=== PATIENT | male | born 1975 | race Caucasian/White ===

== ENCOUNTER 2018-04-06 10:58 | Inpatient (IN) | payer OTHER ==
[~2018-04-06] VITALS: Ht 180.3 cm; Wt 97.5 kg
[2018-04-06 14:46] LABS: *AMPHETAMINE, URINE NEGATIVE (NEGATIVE); *BARBITURATE, URINE NEGATIVE (NEGATIVE); *CANNABINOID, URINE NEGATIVE (NEGATIVE); *COCCAINE, URINE NEGATIVE (NEGATIVE); *OPIATE, URINE NEGATIVE (NEGATIVE); *PHENCYCLIDINE SCREEN,URINE NEGATIVE (NEGATIVE)
--- NOTE | 2018-04-06 14:55 | NUR ---
PRE-ADMISSION NOTE PT IS A 42 Y/O M, RECEIVED AT INTAKE, PT IS A/OX4, RESPIRATIONS EVEN AND UNLABORED. INITIAL VS, BP: 163/95, HR: 71, RR: 18, O2SAT: 97%. PT IS FLUSHED, APPEARS ANXIOUS, PRESSURED SPEECH, HAS A NERVOUS LAUGHTER, FIDGETY. PT REPORTS NKA, PMH OF ANXIETY AND DEPRESSION. NO HX OF SZ. HX OF SI AT AGE 21; PT CUT HIS WRISTS IN AN ATTEMPT TO COMMIT SUICIDE. DENIES SI AT THIS TIME. DENIES SMOKING. SUBSTANCE USE HX: 1. ETOH- VODKA 1 PINT DAILY FOR 11 MONTHS, WAS DRINKING VODKA 750 ML DAILY FOR 3-4 YEARS. BEFORE THEN, PT STATES HE WAS DRINKING OCCASIONAL BEERS. LAST USE WAS YESTERDAY 04/05/18 @220- 1 TALL CAN OF BEER. 2. BENZO- KLONOPIN 2 MG BID DAILY FOR 5-6 MONTHS. BEFORE HE WAS USING 1 MG X 3 MONTHS. BEFORE, HE WAS USING 0.5 MG FOR 3 MONTHS. LAST USE IS TODAY 04/06/18 0800.
--- NOTE | 2018-04-06 16:00 | NUR ---
CIWA ASSESSMENT CIWA 15 @1600. PT IS FLUSHED, HAS DARK CIRCLES UNDER HIS EYES, APPEARS ANXIOUS, HAS A PRESSURED SPEECH. PT PRESENTS HIGH ANXIETY, AGITATION, RESTLESS MOVEMENTS, CLAMMY SKIN, DIAPHORESIS, DIFFICULTY CONCENTRATING, TREMORS, PINS AND NEEDLES SENSATION.
[2018-04-06 16:30] VITALS: BP 155/102
[2018-04-06] MEDS ORDERED: LORAZEPAM 2 MG/1 ML VIAL IM PRN (17:00)
[2018-04-06] MEDS ORDERED: MIRALAX 17 GM POWD.PACK PO PRN (17:00)
[2018-04-06] MEDS ORDERED: IBUPROFEN 600 MG TABLET PO PRN (17:00)
[2018-04-06] MEDS ORDERED: ONDANSETRON 4 MG/2 ML VIAL IM PRN (17:00)
[2018-04-06] MEDS ORDERED: LOPERAMIDE HCL 2 MG CAPSULE PO PRN ×2 (17:00)
[2018-04-06] MEDS ORDERED: LORAZEPAM 1 MG TABLET PO PRN ×2 (17:00)
[2018-04-06] MEDS ORDERED: MAG HYDROX/AL HYDROX/SIMETH 30 ML LIQUID UDC PO PRN (17:00)
[2018-04-06] MEDS ORDERED: MAGNESIUM HYDROXIDE 30 ML LIQUID UDC PO PRN (17:00)
[2018-04-06] MEDS ORDERED: ACETAMINOPHEN 325 MG TABLET PO PRN (17:00)
[2018-04-06] MEDS ORDERED: THIAMINE HCL 200 MG/2 ML VIAL IM ONE (17:00)
[2018-04-06] MEDS: PHENOBARBITAL 60 MG TABLET PO SCH ×2 (17:23→21:04)
[2018-04-06 18:15] LABS: BASOPHILS # (AUTO) 0.1 K/uL (0.0-8.0); EOSINOPHILS # (AUTO) 0.3 K/uL (0.0-0.7); EOSINOPHILS % (AUTO) 4.9 % (0.0-7.0); HEMATOCRIT 48.3 % (36.7-47.1); HEMOGLOBIN 16.4 g/dL (12.5-16.3); LYMPHOCYTES % (AUTO) 30.6 % (20.5-51.5); MEAN CORPUSCULAR HEMOGLOBIN 32.4 uug (23.8-33.4); MEAN CORPUSCULAR HGB CONC 34 g/dL (32.5-36.3); MEAN CORPUSCULAR VOLUME 95.7 fL (73.0-96.2); MONOCYTES # (AUTO) 0.4 K/uL (2.0-10.0); MONOCYTES % (AUTO) 6.4 % (0.0-11.0); NEUTROPHILS # (AUTO) 3.8 K/uL (1.8-8.9); NEUTROPHILS % (AUTO) 57.1 % (38.5-71.5); PLATELET COUNT (AUTO) 305 K/uL (152-348); RED BLOOD CELL COUNT(AUTO) 5.05 MIL/uL (4.06-5.63); WHITE BLOOD COUNT (AUTO) 6.7 K/uL (3.6-10.2)
[2018-04-06 18:31] LABS: ALANINE AMINOTRANSFERASE 110 U/L (16-63); ALKALINE PHOSPHATASE 67 U/L (50-136); ASPARTATE AMINOTRANSFERASE 49 U/L (15-37); BILIRUBIN,TOTAL 0.5 mg/dL (0.2-1.0); CARBON DIOXIDE 24 mmol/L (21-32); CHLORIDE 104 mmol/L (98-107); CREATININE 1.4 mg/dL (0.6-1.3); GLUCOSE 124 mg/dL (74-106); MAGNESIUM 2.2 mg/dL (1.8-2.4); POTASSIUM 3.8 mmol/L (3.5-5.1); TOTAL PROTEIN, SERUM 8.4 g/dL (6.4-8.2); UREA NITROGEN, BLOOD 14 mg/dL (7-18)
[2018-04-06 18:33] LABS: ETHANOL < 3 MG/DL (0-0)
--- NOTE | 2018-04-06 18:52 | NUR ---
ADMISSION NOTE PT IS A 42 Y/O M ADMITTED ON 04/06/18 AT 1520 FOR MEDICALLY SUPERVISED ETOH-VODKA AND BENZO- KLONOPIN WITHDRAWAL. PT IS A/OX4, RESPIRATIONS EVEN AND UNLABORED. INITIAL VS, BP: 163/95, HR: 71, RR: 18, O2SAT: 97%. PT IS 5'11 AND 215 LBS. PT IS SELF AMBULATORY, AND IS THE PRIMARY SOURCE OF INFO. PT IS FLUSHED, HAS DARK CIRCLES UNDER HIS EYES, APPEARS ANXIOUS, HAS A PRESSURED SPEECH AND A NERVOUS LAUGHTER. PT STATES HE IS BEGINNING TO FEEL S/S OF WITHDRAWAL, C/O ANXIETY, AGITATION, RESTLESS MOVEMENTS, CLAMMY SKIN, DIAPHORESIS, DIFFICULTY CONCENTRATING, TREMORS, PINS AND NEEDLES SENSATION. PT HAS GOOD SKIN TURGOR, CAP REFILL WNL, LUNGS ARE BILATERALLY CLEAR. BOWEL SOUNDS ACTIVE X4 QUAD AND ABD SOFT IS NON-TENDER. PT REPORTS NKA, PMH OF ANXIETY AND DEPRESSION. NO HX OF SZ. HX OF SI WITH ATTEMPT AT AGE 21; PT CUT HIS WRISTS IN AN ATTEMPT TO COMMIT SUICIDE. DENIES SI AT THIS TIME. DENIES HAVING A PCP. PSYCH MD IS DR. GIBSON. PT HAS A HX OF SMOKING BUT REPORTS NOT AT THIS TIME, HAS NOT SMOKED FOR 10 YEARS. PT REPORTS HAVING A FAMILY HX OF ETOH ABUSE- MOTHER, SISTER AND BROTHER. SUBSTANCE USE HX: 1. ETOH- VODKA 1 PINT DAILY FOR 11 MONTHS, WAS DRINKING VODKA 750 ML DAILY FOR 3-4 YEARS. BEFORE THEN, PT STATES HE WAS DRINKING OCCASIONAL BEERS. LAST USE WAS YESTERDAY 04/05/18 @220- 1 TALL CAN OF BEER. 2. BENZO- KLONOPIN 2 MG BID DAILY FOR 5-6 MONTHS. BEFORE HE WAS USING 1 MG X 3 MONTHS. BEFORE, HE WAS USING 0.5 MG FOR 3 MONTHS. LAST USE IS TODAY 04/06/18 0800. PT REPORTS HE HAS THE FOLLOWING SYMPTOMS WHEN HE DOESN'T USE: EXTREME ANXIETY, PALPITATIONS, SENSE OF PANIC, NAUSEA, STATES "IT FEELS LIKE I CAN'T BREATHE AND I CAN FEEL MY BLOOD PRESSSURE GO SO HIGH UP," AGROPHOBIA, PT STATES, "I FEEL SHAKY INSIDE, I FEEL LIKE EVERYONE AROUND ME KNOWS WHAT I AM FEELING INSIDE." PT REPORTS HE HAS BEEN PRESCRIBED KLONOPIN TO FACILITATE IN ETOH DETOX SO HE CAN WEAN HIMSELF OFF THE ETOH AT HOME; HOWEVER HE ENDED UP USING IT EVERYDAY, GAINING TOLERANCE TO KLONOPIN AND EVENTUALLY BEING PRESCRIBED A HIGHER DOSE EVERY FEW MONTHS. PT REPORTS HIS DOCTOR NEVER EDUCATED HIM ABOUT WITHDRAWAL FROM BENZOS AND THE RISKS INVOLVED; HE STATES HE WANTED TO BE OFF OF THEM IMMEDIATELY. PT STATES, "IM 42 Y/O. I DONT WANT THAT LIFESTYLE ANYMORE, WANT TO BREAK THE CYCLE, JUST START OUR OWN LIVES WITH MY AND DAUGHTER. WANT TO BREAK AWAY FROM MY FAMILY; THEY ALWAYS THINK THEY ARE RIGHT, MOST MY STRESS IS FROM THEM." PT REPORTS HE DRINKS TO FEEL "CALMER" AND STATES, "WHEN I DRINK IT HELPS ME COPE WITH THE STRESS CAUSED BY RUDE BROTHER AND MY PARENTS. MY TRIGGERS ARE MY FAMILY ASIDE FROM MY AND DAUGHTER. THE CONSEQUENCES I FACED FROM DRINKING IS THAT MY IS DIAPPOINTED IN ME, I AM DISAPPOINTED IN MYSELF, AND THE RELATIONSHIP BETWEEN MY FAMILY AND I SUFFERS." PT VERBALIZES THAT HE IS HIGHLY MOTIVATED TO GET SOBER AND IS WILLING TO DO WHAT IT TAKES. SKIN IS INTACT, AND BODY CHECK IS COMPLETED. EDUCATED PT WITH UNIT RULES, MED REGIMEN, S/S TO REPORT AND PLAN OF CARE. PT VERBALIZED UNDERSTANDING. ENCOURAGED PT TO INCREASE FLUIDS TOLERATED TO FACILITATE IN DETOX. SIDE RAILS ARE PADDED AND UPX2, BED IN LOWEST POSITION. CALL LIGHT IS WITHIN REACH. SAFETY MEASURES IN PLACE. WILL CONTINUE TO MONITOR. Addendum: 04/07/18 at 1032 by JANELL CORRAL RN PT REPORTS THIS IS HIS FIRST TIME IN TREATMENT.
--- NOTE | 2018-04-06 19:15 | NUR ---
Start of Shift Note: Patient is a 42 y.o male admitted today 04/06/18 for medically supervised withdrawal from ETOH & Benzo use. Patient is alert & oriented x4. He presents with a flushed face, anxious/irritable mood, sweating & fine tremors. He denies hallucinations at this time. Respiration even & unlabored. No N/V/D nored. Pt started on a 6-day Phenobarbital taper and tolerating well. Last CIWA is 15. No PRN medications received during the day. Pt encourage to increase fluid intake for hydration. Educated pt of current plan of care for the night and medication regimen. Safety measures in place. Will continue to monitor patient.
--- NOTE | 2018-04-06 19:40 | NUR ---
END OF SHIFT PT HAS HAD A PANIC ATTACK BEFORE PHENOBARBITAL WAS GIVEN. PT REPORTED HAVING DECREASED ANXIETY AFTER 1 HR. PT ATE 25% OF DINNER. PT IS CURRENTLY IN ROOM SITTING IN A CHAIR WATCHING TV. SAFETY MEASURES IN PLACE. ENDORSEMENT GIVEN TO GEOSCIENCE LABORATORY TECHNICIAN NURSE. Addendum: 04/06/18 at 1943 by JANELL CORRAL RN CAROL Pinedo.
[2018-04-06 20:00] VITALS: BP 145/98
[2018-04-06] MEDS: diphenhydrAMINE 50 MG CAPSULE PO PRN (22:45)
[2018-04-06] MEDS: HYDROXYZINE PAMOATE 25 MG CAPSULE PO PRN (22:45)
--- NOTE | 2018-04-06 22:45 | NUR ---
PRN Benadryl & Vistaril Patient complains of inability d/t anxiety. PRN Benadryl & Vistaril administered as ordered. Will continue to monitor for effectiveness of medication.
--- NOTE | 2018-04-06 23:45 | NUR ---
PRN Reassessment Patient in bed and appears calm & comfortable. Pt verbalized decreased in anxiety and stated that he already feels tired. PRN medication effective. Safety measures in place. Will continue to monitor patient.
[2018-04-07] VITALS: BP 138/79
[2018-04-07 04:00] VITALS: BP 121/73
--- NOTE | 2018-04-07 07:08 | NUR ---
End of Shift Note: Patient is a 42 y.o male admitted today 04/06/18 for medically supervised withdrawal from ETOH & Benzo use. He is alert & oriented x4. He presented with flushed face, moist skin, anxious/irritable mood, sweating & fine tremors during my shift. He started on a 6-day Phenobarbital taper yesterday and he is tolerating well. Pt received PRN Vistaril & Benadryl during my shift and was effective. Last CIWA is 11. Pt reported medication to be effective in decreasing symptoms of withdrawal. Pt remained stable and vitals noted WNL. Continue to encourage pt to increase fluid intake for hydration and to attend group activities to learn coping skills. He slept for a total of 7 hours. Fluid intake 1000 ml, Voided 3x with no bowel movement. All needs attended. Safety measures in place. Will endorse pt to day shift nurse.
--- NOTE | 2018-04-07 07:30 | NUR ---
Start of Shift Extrusion Technician received report on 42 year old male admitted to [facility] on 04/06/18 for ETOH and Klonopin withdrawals. Pt denies PMH, endorses PPH of anxiety and depression. Pt with history of SA, age 21. Pt started on Phenobarbital taper, with last CIWA 11, per NOC report. Pt was administered Benadryl(insomnia) and Vistaril(anxiety) on NOC, per report. Extrusion Technician encounters pt in pts room, resting with eyes closed and even and unlabored respirations noted. Bed in low position with wheels locked and side rails up x2. Will continue to monitor, support and encourage according to plan of care.
[2018-04-07 08:00] VITALS: BP 131/72
--- NOTE | 2018-04-07 08:00 | NUR ---
CIWA 11 Pt is tremulous, diaphoretic, anxious and restless. Will continue to monitor, support and encourage according to plan of care.
[2018-04-07] MEDS: PHENOBARBITAL 60 MG TABLET PO SCH ×3 (08:48→20:36)
[2018-04-07] MEDS: MULTIVITAMINS,THERAPEUTIC TABLET PO SCH (08:48)
[2018-04-07] MEDS: THIAMINE HCL 100 MG TABLET PO SCH (08:48)
[2018-04-07] MEDS: FOLIC ACID 1 MG TABLET PO SCH (08:48)
[2018-04-07] MEDS ORDERED: TUBERCULIN,PURIF.PROT.DERIV. 5 TU/0.1 ML TEST ID ONE (09:00)
--- NOTE | 2018-04-07 12:00 | NUR ---
CIWA 11 Pt is tremulous, diaphoretic, anxious and restless. Pt endorses isolation, " Aba not really want to be around people." Pt endorses nausea and mild headache symptoms." Will continue to monitor, support and encourage according to plan of care.
[2018-04-07 12:50] VITALS: BP 130/92
[2018-04-07 16:30] VITALS: BP 122/79
--- NOTE | 2018-04-07 16:30 | NUR ---
CIWA 15 Pt is diaphoretic, tremulous and anxious with restlessness. Pt complains of nausea and head discomfort. Will continue to monitor, support and encourage according to plan of care.
--- NOTE | 2018-04-07 19:02 | NUR ---
End of Shift Artificial Breeding Ranch Supervisor provided report on 42 year old male admitted to [facility] on 04/06/18 for ETOH and Klonopin withdrawals. Pt denies PMH, endorses PPH of anxiety and depression. Pt with history of SA, age 21. Pt started on Phenobarbital taper, with last CIWA 15, recorded at 1630. Pt is anxious, restless and tremulous with nausea and head discomfort. Pt is A/O x4 and makes his needs known. Linear thought process with clear speech pattern. Pt is anxious and restless, wanting to isolate, I do not want to be around people. Bed in low position with wheels locked and side rails up x2.
--- NOTE | 2018-04-07 19:40 | NUR ---
Start of Shift Note Received 42 y/o male px, admitted for medically supervised withdrawal from ETOH and Benzo. Px was placed on 6 day Phenobarbital taper started on 03/27/2018. Px is tolerating it. Last reported CIWA by AM shift nurse is 15. During the shift at 1930, px is awake on sitting on the chair. Px appears anxious with flushed face, odorous with good eye contact. Px stated that his anxiety is 7/10. Bilateral hand tremors noted. No more complaints at the moment. Bed on lowest position, side rails up x1 on the left side, and call light within reach. Well continue to monitor.
--- NOTE | 2018-04-07 19:40 | NUR ---
Side rails Px refused to put up the side rail on the upper right side. Px stated "I'm good. I don't want the side rail up. I am comfortable with this." We'll continue to monitor.
[2018-04-07 20:00] VITALS: BP 160/101
--- NOTE | 2018-04-07 20:00 | NUR ---
CIWA 14 Px appears anxious with flushed face, and good eye contact. Px is withdrawn. Bilateral hand tremors noted. Px is a bit fidgety and agitated. No H/A nor N/V. We'll continue to monitor.
--- NOTE | 2018-04-07 21:36 | NUR ---
CIWA 14 Px still appears anxious. Px is withdrawn. Bilateral hand tremors noted. Px is still fidgety. No H/A nor N/V. We'll continue to monitor.
[2018-04-07] MEDS: HYDROXYZINE PAMOATE 25 MG CAPSULE PO PRN (21:50)
[2018-04-07] MEDS: diphenhydrAMINE 50 MG CAPSULE PO PRN (21:50)
--- NOTE | 2018-04-07 21:50 | NUR ---
PRN medications Px received Benadryl 50 mg/cap, 1 cap PO for insomnia and Vistaril 25/cap, 1 cap PO for anxiety. We'll continue to monitor.
--- NOTE | 2018-04-07 22:50 | NUR ---
Reassessment of anxiety Px stated that his anxiety improved a little and he is already sleepy.
[2018-04-08] VITALS: BP 123/78
--- NOTE | 2018-04-08 | NUR ---
CIWA deferred CIWA deferred due to the px is asleep, to assess if the px is awake per doctor's order. We'll continue to monitor.
[2018-04-08 04:00] VITALS: BP 119/72
--- NOTE | 2018-04-08 04:00 | NUR ---
CIWA deferred CIWA deferred due to the px is asleep, to assess if the px is awake per doctor's order. We'll continue to monitor.
--- NOTE | 2018-04-08 07:10 | NUR ---
End of Shift Note During the shift at 2150, px received Benadryl 50 mg PO for insomnia and Vistaril 25 mg PO for anxiety. They were effective. Px oral intake is 1500 ml, voided 3x without BM. Px slept for 8.5 hours. At 0630, px is asleep on bed in left side lying position. Last CIWA 14. Bed on lowest position, side rails up x1 on left side, and call light within reach. Well continue to monitor. Px endorsed to AM shift nurse.
--- NOTE | 2018-04-08 07:30 | NUR ---
Start of Shift Biscuit Maker received report on 42 year old male admitted to [facility] on 04/06/18 for ETOH and Klonopin withdrawals. Pt denies PMH, endorses PPH of anxiety and depression. Pt with history of SA, age 21. Pt started on Phenobarbital taper, with last CIWA 13, per NOC report. Pt was administered Benadryl(insomnia) and Vistaril(anxiety) on NOC, per report. Biscuit Maker encounters pt in pts room, resting with eyes closed and even and unlabored respirations noted. Bed in low position with wheels locked and side rails up x2. Will continue to monitor, support and encourage according to plan of care.
[2018-04-08 08:10] VITALS: BP 104/61
[2018-04-08] MEDS: MULTIVITAMINS,THERAPEUTIC TABLET PO SCH (09:49)
[2018-04-08] MEDS: FOLIC ACID 1 MG TABLET PO SCH (09:49)
[2018-04-08] MEDS: THIAMINE HCL 100 MG TABLET PO SCH (09:49)
[2018-04-08] MEDS: PHENOBARBITAL 60 MG TABLET PO SCH ×4 (09:50→20:57)
--- NOTE | 2018-04-08 10:50 | NUR ---
Therapist prompted client to attend group counseling sessions and client stated he would attend if his anxiety reduces.
[2018-04-08 12:00] VITALS: BP 141/92
--- NOTE | 2018-04-08 12:00 | NUR ---
CIWA 12 Pt remains anxious and restless, spends time staring out windows, endorses some paranoia. Pt has nausea and tremors. Will continue to monitor, support and encourage according to plan of care.
[2018-04-08 16:30] VITALS: BP 153/101
--- NOTE | 2018-04-08 16:30 | NUR ---
SOLANGE Re-Assessment Customer Complaint Service Supervisor re-check on BP:135/87. Medication effective. Will continue to monitor, support and encourage according to plan of care. Addendum: 04/08/18 at 1858 by ALEC SHEIKH RN Wrong time noted. Re-Assessment at 1830, not 1630
--- NOTE | 2018-04-08 16:30 | NUR ---
CIWA 13 Pt is anxious and restless, but isolative to room. Pt complains of nausea and head discomfort. Will continue to monitor, support and encourage according to plan of care.
[2018-04-08] MEDS: CLONIDINE HCL 0.1 MG TABLET PO PRN (17:20)
--- NOTE | 2018-04-08 17:20 | NUR ---
PRN Clonidine Pt's BP: 153/101. Data Communications Technician administered medication per order with pt tolerating well. Will continue to monitor, support and encourage according to plan of care.
--- NOTE | 2018-04-08 19:10 | NUR ---
End of Shift Gang Supervisor provided report on 42 year old male admitted to [facility] on 04/06/18 for ETOH and Klonopin withdrawals. Pt denies PMH, endorses PPH of anxiety and depression. Pt with history of SA, age 21. Pt started on Phenobarbital taper, with last CIWA 13, recorded at 1630. Pt was administered Clonidine(HTN) as PRN medication. Pt isolates to room. Pt has paranoid delusions of people knowing what he thinks and knowing too much about pt. Pt states he prefers to not be around people. Bed in low position with wheels locked and side rails up x2.
--- NOTE | 2018-04-08 19:40 | NUR ---
Start of Shift Note Received 42 y/o male alex, admitted for medically supervised withdrawal from ETOH and Benzo. Px was placed on 6 day Phenobarbital taper started on 03/27/2018. Px is tolerating it. Last reported CIWA by AM shift nurse is 13. During the shift at 1940, px is awake on bed in fowlers position, watching TV. Px appears anxious with flushed face, odorous with good eye contact. Px is withdrawn. Px stated "I am not into public places you know. My anxiety increases if I am around of a lot of people. I attended 1 of the groups today. I don't want to attend every group." Px stated that his anxiety is minimal. Bilateral hand tremors noted. Px was encouraged to take a shower. Px replied that he will take his shower tomorrow morning. Bed on lowest position, side rails up x1 on the left side, and call light within reach. Well continue to monitor.
[2018-04-08 20:00] VITALS: BP 131/77
--- NOTE | 2018-04-08 20:00 | NUR ---
CIWA 10 Px appears anxious with flushed face, and good eye contact. Px is withdrawn. Bilateral hand tremors noted. Px has mild H/A but no body aches. No N/V. We'll continue to monitor.
--- NOTE | 2018-04-08 22:00 | NUR ---
CIWA 10 Reassessment of CIWA after administration of Phenobarbital 30 mg PO. Px stiil appears anxious with flushed face, and good eye contact. Px is withdrawn. Bilateral hand tremors noted. Px has mild H/A but no body aches. No N/V. We'll continue to monitor.
[2018-04-08 22:08] LABS: HEPATITIS B SURFACE AG Negative (Negative)
[2018-04-08] MEDS: HYDROXYZINE PAMOATE 25 MG CAPSULE PO PRN (22:17)
[2018-04-08] MEDS: diphenhydrAMINE 50 MG CAPSULE PO PRN (22:17)
--- NOTE | 2018-04-08 22:17 | NUR ---
PRN medications Px received Benadryl 50 mg/cap, 1 cap PO for insomnia and Vistaril 25 mg/cap, 1 cap PO for anxiety. We'll continue to monitor.
[2018-04-09] VITALS: BP 120/71
--- NOTE | 2018-04-09 | NUR ---
CIWA deferred CIWA deferred due to the px is asleep, to assess if the px is awake per doctor's order. We'll continue to monitor.
[2018-04-09 04:00] VITALS: BP 114/68
--- NOTE | 2018-04-09 04:00 | NUR ---
CIWA deferred CIWA deferred due to the px is asleep, to assess if the px is awake per doctor's order. We'll continue to monitor.
--- NOTE | 2018-04-09 07:10 | NUR ---
End of Shift Note During the shift at 2217, px received Benadryl 50 mg PO for insomnia and Vistaril 25 mg PO for anxiety. They were effective. Px oral intake is 2 L, voided 4x, without BM. Px slept for 7 hours. At 0630, px is asleep on bed in left side lying position. Last CIWA 10. Bed on lowest position, side rails up x1 on the left side, and call light within reach. Well continue to monitor. Px endorsed to AM shit nurse.
--- NOTE | 2018-04-09 07:30 | NUR ---
START OF SHIFT Pt 42 y/o male admitted for etoh and benzo withdrawal. Pt received in room bed. Pt alert and oriented to name, place, and time. Perrla. Skin warm and moist to touch. Respirations even and unlabored. Bilateral hand tremors noted. Pt appears disheveled. Clothes scattered throughout the room. Encouraged to maintain hygiene. It was reported that pt slept for 7 hours last night. Last ciwa=10 reported @1999. Pt is on a 6 day phenobarbital taper and is on day 4. Bed on lowest position with side rails x2 up for safety.
[2018-04-09 08:00] VITALS: BP 130/80
--- NOTE | 2018-04-09 08:00 | NUR ---
COWS ASSESSMENT Pt with ciwa=14. Pt with bilateral hand tremors noted. Pt anxious and restless, not able to sit still. Pt easily irritable.
[2018-04-09 08:07] LABS: BILIRUBIN,TOTAL 0.3 mg/dL (0.2-1.0); CREATININE 1.4 mg/dL (0.6-1.3); POTASSIUM 4.3 mmol/L (3.5-5.1); TOTAL PROTEIN, SERUM 7.3 g/dL (6.4-8.2)
[2018-04-09] MEDS: PHENOBARBITAL 60 MG TABLET PO SCH ×3 (08:40→21:26)
[2018-04-09] MEDS: FOLIC ACID 1 MG TABLET PO SCH (08:40)
[2018-04-09] MEDS: MULTIVITAMINS,THERAPEUTIC TABLET PO SCH (08:40)
[2018-04-09] MEDS: THIAMINE HCL 100 MG TABLET PO SCH (08:40)
[2018-04-09 12:00] VITALS: BP 150/96
--- NOTE | 2018-04-09 12:00 | NUR ---
COWS ASSESSMENT Pt with ciwa=14. Pt with bilateral hand tremors noted. Pt anxious and restless, not able to sit still. Pt easily irritable.
[2018-04-09] MEDS: HYDROXYZINE PAMOATE 25 MG CAPSULE PO PRN ×2 (14:39→21:33)
--- NOTE | 2018-04-09 14:40 | NUR ---
PRN VISTARIL Pt states feels anxious. Vistaril po prn per MD order given and tolerated well.
--- NOTE | 2018-04-09 15:40 | NUR ---
PRN VISTARIL EVAL Pt observed in room on bed watching television. Pt states medication effective.
[2018-04-09 16:00] VITALS: BP 134/82
--- NOTE | 2018-04-09 16:00 | NUR ---
COWS ASSESSMENT Pt with ciwa=14. Pt with bilateral hand tremors noted. Pt anxious and restless, not able to sit still. Pt easily irritable.
--- NOTE | 2018-04-09 19:15 | NUR ---
Start of Shift Note: Patient is a 42 y.o male admitted for medically supervised withdrawal from ETOH & Benzo use. Received patient in bed watching TV, he remains alert & oriented x4. He appears with an anxious/irritable mood. He has moist/clammy skin & bilateral hand tremors noted. Pt denies N/V/D. No hallucinations noted. Patient continues on his Phenobarbital taper and tolerating well. PRN Vistaril received during day shift and was effective per report. Last CIWA 14. Pt attended 1 group today and per patient I attended this morning group therapy and I dont need to attend another one. Continue to encourage pt to attend group therapy to learn coping skills and to prevent relapse. Informed patient current plan of care for the night and medication regimen. Safety measures in place. Will continue to monitor patient.
--- NOTE | 2018-04-09 19:26 | NUR ---
END OF SHIFT Pt 42 y/o male admitted for etoh and benzo withdrawal. Pt alert and oriented to name, place, and time. Perrla. Skin warm and moist to touch. Respirations even and unlabored. Bilateral hand tremors noted. Pt appears disheveled. Food wrappings and empty drink bottles scattered throughout the room. Encouraged to maintain hygiene. Pt with periods of anxiety this morning and afternoon. Pt observed breathing heavily, not able to make eye contact when pt is anxious, and not able to sit still. Pt attended group activity. Pt mostly isolative to room with low motivation for self care. Pt did attend group activity. Pt was seen by MD today. Pt medication compliant. Last ciwa=14 @ 1600. Pt is on a 6 day Phenobarbital taper and is on day 4. Bed on lowest position with side rails x2 up for safety. Call light within reach.
[2018-04-09 20:00] VITALS: BP 136/87
[2018-04-09] MEDS: diphenhydrAMINE 50 MG CAPSULE PO PRN (21:33)
--- NOTE | 2018-04-09 21:33 | NUR ---
PRN Vistaril/Benadryl/Miralax Patient is anxious and complains of having trouble falling asleep. Pt also complains of constipation. PRN Vistaril, Benadryl, & Miralax administered as ordered. Will monitor for effectiveness of medication.
--- NOTE | 2018-04-09 22:33 | NUR ---
PRN Reassessment Patient still awake at this time. Pt verbalized decreased in anxiety after 1 hour of medication administration. Pt laying in bed and appears comfortable. Encourage pt to turn off light and television and maintain a calm environment to help pt sleep. Deep breathing exercises provided. Safety measures in place. Will continue to monitor patient.
[2018-04-10 01:15] VITALS: BP 152/98
[2018-04-10] MEDS: CLONIDINE HCL 0.1 MG TABLET PO PRN ×4 (01:26→20:43)
--- NOTE | 2018-04-10 01:26 | NUR ---
PRN Clonidine & Zofran Patient complained of nausea and anxiety. Vitals noted. B/P 152/98, W[place] 62. PRN Clonidine & Zofran administered as ordered. Safety measures in place. Will monitor for effectiveness of medication.
--- NOTE | 2018-04-10 02:26 | NUR ---
PRN Reassessment Patient asleep in bed and appears comfortable. Respiration even & unlabored. Safety measures in place. Will continue to monitor patient.
--- NOTE | 2018-04-10 04:00 | NUR ---
Vitals/CIWA Deferred Patient refused Vitals at this time. Patient asleep in bed and appears comfortable. Respiration even & unlabored. Unable to assess CIWA at this time and will reassess when pt is awake. Safety measures in place. Will continue to monitor patient.
--- NOTE | 2018-04-10 07:14 | NUR ---
End of Shift Note: Continue to closely monitor patient. He remains alert & oriented x4. He presented with flushed face, moist skin, anxious/irritable mood, sweating & fine tremors during my shift. He is on day 5 of his 6-day Phenobarbital taper and he is tolerating well. Pt received PRN Miralax, Clonidine, Vistaril & Benadryl during my shift and was effective. Last CIWA is 10. Pt reported medication to be effective in decreasing symptoms of withdrawal. PPD reading was done and noted to be negative with no induration noted. Pt remained stable and vitals noted WNL. Continue to encourage pt to increase fluid intake for hydration and to attend group activities to learn coping skills. He slept for a total of 4 hours. Fluid intake 1500 ml, Voided 7x with 1x bowel movement. All needs attended. Safety measures in place. Will endorse pt to day shift nurse.
--- NOTE | 2018-04-10 07:30 | NUR ---
START OF SHIFT Pt 42 y/o male admitted for etoh and benzo withdrawal. Pt received in room bed. Pt alert and oriented to name, place, and time. Perrla. Skin warm and moist to touch. Respirations even and unlabored. Bilateral hand tremors noted. Pt appears disheveled. Empty drink bottles scattered throughout the room. Encouraged to maintain hygiene. Pt anxious and restless this morning, not able to lay still in bed. Pt states he feels "uneasy". It was reported that pt slept for 4 hours last night. Pt is on a 6 day phenobarbital taper and is on day 5. Last ciwa=10 reported at 1999. It was reported that pt received vistaril po prn per for anxiety, benadryl po prn for insomnia, catapres po prn for anxiety, zofran sl prn for nausea, and miralaxx prn for constipation last night. Bed on lowest position with side rails x2 up for safety. Call light within reach.
[2018-04-10 08:00] VITALS: BP 137/90
--- NOTE | 2018-04-10 08:00 | NUR ---
COWS/ CIWA ASSESSMENT Pt with ciwa=13. Pt restless and irritable. Pt states, " I am really anxious right now.", with clenched fist noted. Bilateral hand tremors noted. Addendum: 04/10/18 at 1448 by TE ASHBY RN incorrect title CIWA ASSESSMENT
[2018-04-10] MEDS: MULTIVITAMINS,THERAPEUTIC TABLET PO SCH (08:49)
[2018-04-10] MEDS: THIAMINE HCL 100 MG TABLET PO SCH (08:49)
[2018-04-10] MEDS: FOLIC ACID 1 MG TABLET PO SCH (08:50)
[2018-04-10] MEDS: PHENOBARBITAL 60 MG TABLET PO SCH ×2 (08:50→20:43)
[2018-04-10] MEDS: HYDROXYZINE PAMOATE 25 MG CAPSULE PO PRN ×2 (08:50→15:02)
--- NOTE | 2018-04-10 08:55 | NUR ---
PRN VISTARIL CATAPRES Pt anxious and restless, kept stating, " I don't know. I feel really anxious right now." , as pt was pacing around in his room. Vistaril po prn per MD order given and tolerated well. Catapres po prn per MD order given and tolerated well.
--- NOTE | 2018-04-10 09:55 | NUR ---
PRN VISTARIL CATAPRES EVAL ciwa=10. Pt still anxious, restless, and irritable. Pt stopped clenching fist. Perspiration noted on forehead. Pt remains isolative.
[2018-04-10 12:00] VITALS: BP 128/68
--- NOTE | 2018-04-10 12:00 | NUR ---
CIWA ASSESSMENT ciwa=10. Pt states is anxious and speaking with pressured speech. Pt isolative to room on bed, but not able to lay still. Pt appears irritable.
--- NOTE | 2018-04-10 15:06 | NUR ---
PRN VISTARIL CATAPRES Pt anxious and restless. Pt states, " I can't sit still. when I start thinking about my blood pressure and my cholesterol." Vistaril po prn per MD order and catapres po prn per MD order given and tolerated well.
[2018-04-10 16:00] VITALS: BP 123/70
--- NOTE | 2018-04-10 16:00 | NUR ---
CIWA ASSESSMENT ciwa=11. Pt anxious, restless, irritable, with bilateral hand tremors. Pt focused on blood pressure.
--- NOTE | 2018-04-10 16:06 | NUR ---
PRN EVAL VISTARIL CATAPRES Pt states still anxious, but more improved than earlier. Pt in room watching television.
--- NOTE | 2018-04-10 19:10 | NUR ---
END OF SHIFT Pt 42 y/o male admitted for etoh and benzo withdrawal. Pt alert and oriented to name, place, and time. Perrla. Skin warm and moist to touch. Respirations even and unlabored. Bilateral hand tremors noted. Pt appears disheveled. Clothes scattered throughout the room. Encouraged to maintain hygiene. Pt with periods of anxiety throughout the day. Pt was focused on stress, high blood pressure, and cholesterol. Pt did not attend group activity. Pt isolative to room with low motivation for self care. Pt was seen by MD today. Pt medication compliant. Pt is on a 6 day Phenobarbital taper and is on day 5. Last ciwa=10@1600. Pt received catapres prn and vistaril prn today for periods of anxiety. Bed on lowest position with side rails x2 up for safety. Call light within reach.
--- NOTE | 2018-04-10 19:15 | NUR ---
Start of Shift Note: Continue to closely monitor patient. Received patient in bed watching TV, he remains alert & oriented x4. He appears with an anxious/irritable mood. Per patient, "My anxiety is bad today and I get anxious whenever I think about discharge". He has moist/clammy skin & bilateral hand tremors noted. He reports nausea with no episodes of vomiting noted. No hallucinations noted. Patient continues on his Phenobarbital taper and tolerating well. PRN Vistaril x2 and Clonidine x2 received during day shift and was effective per report. Last CIWA 11. He did not attend groups today d/t anxiety. Continue to encourage pt to attend group therapy to learn coping skills and to prevent relapse. Informed patient current plan of care for the night and medication regimen. Safety measures in place. Will continue to monitor patient.
[2018-04-10 20:00] VITALS: BP 126/78
[2018-04-10] MEDS: ONDANSETRON ODT 4 MG TAB.RAPDIS SL PRN (20:43)
--- NOTE | 2018-04-10 20:43 | NUR ---
PRN Clonidine & Zofran Patient appears anxious & agitated. He reports slight sweating & nausea. No episode of vomiting noted. PRN Clonidine & Zofran administered as ordered. Will monitor for effectiveness of medication.
--- NOTE | 2018-04-10 21:43 | NUR ---
PRN Reassessment Patient verbalized decreased in anxiety & relief from nausea after medication administration. Pt in bed and appears comfortable. Safety measures in place. Will continue to monitor patient.
--- NOTE | 2018-04-11 | NUR ---
Vitals/CIWA Deferred Patient refused Vitals at this time. Patient in bed with eyes close. Patient appears comfortable in bed. Respiration even & unlabored. Unable to assess CIWA at this time and will reassess when pt is awake. Safety measures in place. Will continue to monitor patient.
--- NOTE | 2018-04-11 07:19 | NUR ---
End of Shift Note: Continue to closely monitor patient. He remains alert & oriented x4. He continues to remain isolative and withdrawn and he prefers to stay in his room throughout the shift. He presented with flushed face, moist skin, anxious/irritable mood, sweating & fine tremors. He continues on his Phenobarbital taper and he is tolerating well. Pt received Clonidine for anxiety & Zofran for nausea during my shift and were effective. Last CIWA is 11. Pt reported medication to be effective in decreasing symptoms of withdrawal. Pt remained stable and vitals noted WNL. Continue to encourage pt to increase fluid intake for hydration and to attend group activities to learn coping skills. He slept for a total of 8 hours. Fluid intake 1500 ml, Voided 3x with no bowel movement. All needs attended. Safety measures in place. Will endorse pt to day shift nurse.
--- NOTE | 2018-04-11 07:30 | NUR ---
START OF SHIFT Pt 42 y/o male admitted for etoh and benzo withdrawal. Pt received in room with eyes closed resting. Pt alert and oriented to name, place, and time. Perrla. Skin warm and moist to touch. Respirations even and unlabored. Bilateral hand tremors noted. Pt appears disheveled. Clothes and food wrappings scattered throughout the room. Encouraged to maintain hygiene. Pt anxious and restless this morning. Pt focused on blood pressure being too high. Pt states, " once I think about it, I focus on it too much." It was reported that pt slept for 8 hours last night. Pt is on 6 day phenobarbital taper and is on day 6. Bed on lowest position with side rails x2 up for safety. Call light within reach.
[2018-04-11 07:39] LABS: BILIRUBIN,TOTAL 0.2 mg/dL (0.2-1.0); CREATININE 1.4 mg/dL (0.6-1.3); POTASSIUM 4.4 mmol/L (3.5-5.1); TOTAL PROTEIN, SERUM 7.2 g/dL (6.4-8.2)
[2018-04-11 08:00] VITALS: BP 117/79
--- NOTE | 2018-04-11 08:00 | NUR ---
CIWA ASSESSMENT ciwa=10. Pt with bilateral hand tremors noted. Pt anxious and restless this morning, appears to be focused on blood pressure. Pt with c/o frequent nocturnal awakenings, and some fatigue this morning. Pt with c/o sweats, intermittent perspiration, some muscle aches, and generalized discomfort.
--- NOTE | 2018-04-11 08:00 | NUR ---
CIWA ASSESSMENT ciwa=10. Pt with bilateral hand tremors noted. Pt anxious and irritable this morning. pt observed under the blankets shivering. Pt also states c/o sweats, intermittent perspiration, some muscle aches, and generalized discomfort. Addendum: 04/11/18 at 1008 by TE ASHBY RN incorrect pt
[2018-04-11] MEDS: THIAMINE HCL 100 MG TABLET PO SCH (08:25)
[2018-04-11] MEDS: FOLIC ACID 1 MG TABLET PO SCH (08:25)
[2018-04-11] MEDS: MULTIVITAMINS,THERAPEUTIC TABLET PO SCH (08:25)
[2018-04-11] MEDS ORDERED: PHENOBARBITAL 60 MG TABLET PO SCH (09:00)
[2018-04-11 12:00] VITALS: BP 124/76
--- NOTE | 2018-04-11 12:00 | NUR ---
CIWA ASSESSMENT ciwa=6. Bilateral hand tremors noted slightly. Pt anxious but less irritable. Pt still focused on blood pressure. Pt states has episodes of intermittent perspiration.
[2018-04-11 16:00] VITALS: BP 145/78
--- NOTE | 2018-04-11 16:00 | NUR ---
CIWA ASSESSMENT ciwa=5. Pt with bilateral hand tremors noted slightly. Anxiety noted. Restlessness and generalized discomforted noted. Pt states, " I'm just worried about leaving tomorrow."
--- NOTE | 2018-04-11 18:48 | NUR ---
END OF SHIFT Pt 42 y/o male admitted for etoh and benzo withdrawal. Pt alert and oriented to name, place, and time. Perrla. Skin warm and moist to touch. Respirations even and unlabored. Bilateral hand tremors noted. Pt appears disheveled. Clothes scattered throughout the room. Encouraged to maintain hygiene. Pt anxious and hypervigilant seen looking out his room every time someone walks by the room. Pt mostly isolative to room today. Pt did not attend group activity. Pt was seen by MD today. Last ciwa=5 @1600. Pt is on a 6 day Phenobarbital taper and is on day 6. Pt is scheduled to be discharged tomorrow. Bed on lowest position with side rails x2 up for safety. Call light within reach.
--- NOTE | 2018-04-11 19:30 | NUR ---
START OF SHIFT Pt is a 42 y/o male admitted on 04/06/18 for ETOH and benzo withdrawal. Pt finished a 6 day Phenobarbital taper and is scheduled to be d/c tomorrow. Last CIWA 5 and no PRNs administered during day shift. Upon assessment pt presents with anxiety, restlessness, racing thoughts, nausea, difficulty falling asleep, intermittent tremors, unkempt room, myoclonic jerks, and is fidgety. Medications due. Safety measures in place. Call light within reach. Will continue to monitor.
[2018-04-11 20:00] VITALS: BP 148/95
--- NOTE | 2018-04-11 20:00 | NUR ---
[facility] ASSESSMENT Pt sitting in chair in room watching TV. Upon assessment pt states, "I was just having severe anxiety and was shaking and freaking out, but I decided to watch TV and try to meditate and it's sravan helping." Pt presents with anxiety, restlessness, racing thoughts, nausea, difficulty falling asleep, intermittent tremors, unkempt room, myoclonic jerks, and is fidgety.
[2018-04-11] MEDS: HYDROXYZINE PAMOATE 25 MG CAPSULE PO PRN (21:41)
[2018-04-11] MEDS: diphenhydrAMINE 50 MG CAPSULE PO PRN (21:41)
[2018-04-11] MEDS: CLONIDINE HCL 0.1 MG TABLET PO PRN (21:41)
[2018-04-11] MEDS: ONDANSETRON ODT 4 MG TAB.RAPDIS SL PRN (21:41)
--- NOTE | 2018-04-11 21:41 | NUR ---
PRN BENADRYL, VISTARIL, CLONIDINE AND ZOFRAN ODT ADMINISTRATION Pt requests sleep aid for difficulty falling asleep. Pt presents with anxiety, restlessness and is fidgety. BP 148/95 and HR 86. Pt complains of nausea. Pt states, "I frequently get nauseous when I'm very anxious."Safety measures in place. Call light within reach. Will continue to monitor.
--- NOTE | 2018-04-11 22:11 | NUR ---
PRN RICKY REASSESSMENT Pt reports nausea has ceased. Safety measures in place. Call light within reach. Will continue to monitor.
--- NOTE | 2018-04-11 22:41 | NUR ---
PRN BENADRYL, VISTARIL, CLONIDINE AND RONAK REASSESSMENT Pt laying in bed with eyes closed, medications noted effective. Safety measures in place. Call light within reach. Will continue to monitor. Addendum: 04/11/18 at 2253 by ANASTASIA JIMENES RN CORRECTION: Ronak matias reassessment done at [id number].
[2018-04-12] VITALS: BP 132/85
--- NOTE | 2018-04-12 | NUR ---
CIWA ASSESSMENT CIWA 7. Pt awake, laying in bed. Pt reports difficulty falling asleep and presents with anxiety, restlessness, and sweats.
--- NOTE | 2018-04-12 04:00 | NUR ---
CIWA DEFERRED AND VITALS REFUSED Pt laying in bed with eyes closed, CIWA deferred, to be assessed when pt is awake per orders. Vitals refused. Safety measures in place. Call light within reach. Will continue to monitor.
--- NOTE | 2018-04-12 07:02 | NUR ---
END OF SHIFT Pt is a 42 y/o male admitted on 04/06/18 for ETOH and benzo withdrawal. Pt finished a 6 day Phenobarbital taper and is scheduled to be d/c today. Pt presented with anxiety, restlessness, racing thoughts, elevated BP, nausea, difficulty falling asleep, intermittent tremors, unkempt room, myoclonic jerks, and is fidgety. PRN Benadryl, Vistaril, Clonidine and Zofran odt administered, effective in S/S of withdrawal AEB CIWA 9 lowered to CIWA 7 during shift. Pt slept 8 hours. Intake 1000 ml, void x 1, stool x 0. Safety measures in place. Call light within reach. Pts needs have been met. Endorsed to day shift nurse.
--- NOTE | 2018-04-12 07:45 | NUR ---
START OF SHIFT Pt is a 42 y/o M admitted on 04/06/18 for medically supervised ETOH and BENZO withdrawal. Pt has completed a phenobarbital taper yesterday and is medically cleared to be discharged today. Last CIWA 7 @ [place] and vistaril, clonidine, zofran and benadryl PRNs given. Received pt A/Ox4, respirations even and unlabored, pt is laying in bed, has an anxious affect and disheveled appearance with a messy room. Pt c/o anxiety and nausea. Side rails up and padded x2, bed in low position, call light is within reach. Safety measures in place. Will continue to monitor.
--- NOTE | 2018-04-12 08:00 | NUR ---
CIWA ASSESSMENT 0800 Pt is sitting in bed watching tv, has an anxious mood, talks rapidly, anxious and agitated, and c/o nausea from anxiety.
[2018-04-12 08:17] VITALS: BP 123/80
[2018-04-12] MEDS: FOLIC ACID 1 MG TABLET PO SCH (08:24)
[2018-04-12] MEDS: MULTIVITAMINS,THERAPEUTIC TABLET PO SCH (08:24)
[2018-04-12] MEDS: ONDANSETRON ODT 4 MG TAB.RAPDIS SL PRN (08:24)
[2018-04-12] MEDS: THIAMINE HCL 100 MG TABLET PO SCH (08:24)
[2018-04-12] MEDS: HYDROXYZINE PAMOATE 25 MG CAPSULE PO PRN (08:24)
[2018-04-12 08:25] VITALS: BP 123/80
[2018-04-12] MEDS: CLONIDINE HCL 0.1 MG TABLET PO PRN (08:25)
--- NOTE | 2018-04-12 08:25 | NUR ---
PRN Zofran 4mg sl, clonidine 0.1 mg, and vistaril 25 mg po prns given for anxiety, and nausea. Will monitor and reassess.
--- NOTE | 2018-04-12 09:35 | NUR ---
REASSESSMENT Pt reported meds as effective; pt states nausea juan a ceased and anxiety has decreased.
--- NOTE | 2018-04-12 09:36 | NUR ---
DISCHARGE NOTE Pt is a/ox4, and in stable condition, VS wnl. D/C instructions given and pt verbalized understanding. Last CIWA 7 and md notified of pt discharge. Pt has left the building with all belongings, prescriptions, and d/c paperwork. Pt has been picked up by [employer].
== END 2018-04-12 09:36 | disposition other institution (70) | DRG 895 ==
LOC: SRC 13:51
PROVIDERS: ADMIT Family Medicine Addiction Medicine; ATTEND Family Medicine Addiction Medicine
PROC: HZ2ZZZZ Detoxification Services for Substance Abuse Treatment (ICD-10-PCS; principal; 2018-04-06)
PROC: HZ31ZZZ Individual Counseling for Substance Abuse Treatment, Behavioral (ICD-10-PCS; 2018-04-08)
PROC: HZ41ZZZ Group Counseling for Substance Abuse Treatment, Behavioral (ICD-10-PCS; 2018-04-09)
DX: F10.230 Alcohol dependence with withdrawal, uncomplicated (principal); F13.230 Sedative, hypnotic or anxiolytic dependence with withdrawal, uncomplicated; Y90.0 Blood alcohol level of less than 20 mg/100 ml; F41.1 Generalized anxiety disorder; Z81.8 Family history of other mental and behavioral disorders; I10 Essential (primary) hypertension; E86.0 Dehydration; K59.00 Constipation, unspecified; R74.0 Nonspecific elevation of levels of transaminase and lactic acid dehydrogenase [LDH]; E78.00 Pure hypercholesterolemia, unspecified
CPT/HCPCS: 36415; 80307; 83735; 85025; 86580; 86592; 86705; 86803; 87340; 87806; G0480; J3411; J8499; Q0162; Q0163